=== PATIENT | male | born 1985 | race Caucasian/White ===

== ENCOUNTER → 2020-10-12 14:47 | Outpatient (POV) | payer SELFPAY | PROVIDERS: Visit Provider Dermatology | DX: Z00.00 Encounter for general adult medical examination without abnormal findings (principal) ==

== ENCOUNTER → 2020-10-19 09:08 | Outpatient (POV) | payer SELFPAY | PROVIDERS: Visit Provider Dermatology | DX: Z00.00 Encounter for general adult medical examination without abnormal findings (principal) ==

== ENCOUNTER → 2020-11-09 08:58 | Outpatient (POV) | payer SELFPAY | PROVIDERS: Visit Provider Dermatology | DX: Z00.00 Encounter for general adult medical examination without abnormal findings (principal) ==

== ENCOUNTER → 2023-03-20 14:51 | Outpatient (CLI) | payer BC, SELFPAY ==
--- NOTE | 2023-03-20 14:56 | US_ITS ---
FINAL REPORT TECHNIQUE: Multiple transverse and longitudinal images CLINICAL HISTORY: ELEV. LFTS FINDINGS: The gallbladder shows no wall thickening, distention or stone disease. No biliary ductal dilatation is appreciated. No fluid collections are seen. Limited portions of the right liver are fatty infiltrated. Limited portions of the right kidney are unremarkable. IMPRESSION: 1. No evidence of cholelithiasis 2. No evidence of biliary obstruction Reviewed, Interpreted and Dictated by Lolita Luis MD Transcribed by Peter Phillips Authenticated and [facility]
== END ==
PROVIDERS: PCP Family Medicine; Visit Provider Family Medicine
DX: R94.5 Abnormal results of liver function studies (principal)
CPT/HCPCS: 76705

== ENCOUNTER 2024-10-29 13:50 | Emergency (ER) | payer SELFPAY ==
--- NOTE | 2024-10-29 13:58 | HMH.EDGENADL ---
Discharge Plan Disposition Patient Disposition: Xfer Short-Term Hosp Condition: Fair Referrals Follow up/Referrals: Daija Franz [Primary Care Provider, Medical] - See instructions Activity Restrictions/Add. Instructions Additional Instructions/Restrictions: To the [facility] emergency department care of Dr. Ledesma Clinical Impressions Clinical Impression: Open fracture of distal phalanx of left index finger Qualifiers: Encounter type: initial encounter Fracture alignment: nondisplaced Qualified Code(s): S62.661B - Nondisplaced fracture of distal phalanx of left index finger, initial encounter for open fracture Laceration of left middle finger Qualifiers: Encounter type: initial encounter Damage to nail status: without damage Foreign body presence: unspecified Qualified Code(s): S61.213A - Laceration without foreign body of left middle finger without damage to nail, initial encounter Laceration of left ring finger Qualifiers: Encounter type: initial encounter Damage to nail status: without damage Foreign body presence: unspecified Qualified Code(s): S61.215A - Laceration without foreign body of left ring finger without damage to nail, initial encounter Stand Alone Forms Stand Alone Forms: Transfer Record - ED Instructions Patient Instructions: DI for Laceration Repair Print Language Print Language: Kiswahili Discharge ED Provider: Solis Heller General Adult HPI <JAIMIE Rosenbaum - Last Filed: 10/29/24 15:36> General Chief complaint: Wound/Laceration Stated complaint: AO-laceration to left hand fingers Time Seen by Provider: 10/29/24 13:56 History of Present Illness HPI narrative: Patient presents for evaluation of a left hand injury. Patient was using an angle pocket grinder operator and slipped causing an injury to the 2nd, 3rd and 4th digits of his left hand. He retains sensation and motor but the left index finger is the most painful to range of motion. Related Data Allergies Allergy/AdvReac Type Severity Reaction Status Date / Time No Known Allergies Allergy Verified 10/29/24 14:04 PFSH <JAIMIE Rosenbaum - Last Filed: 10/29/24 15:36> PFS Disclaimer: The information contained in this section may have been updated after the patient was seen, as this information can be updated by other users. Social History (Updated 10/29/24 @ 15:36 by JAIMIE Rosenbaum) Smoking Status: Current every day smoker alcohol intake: never current occupational status: employed Travel in the last 8 weeks?: None Have you lived/traveled outside US in past 30 days?: No Contact w/someone who lives/traveled outside US past 30 days?: No Exposure to someone with infectious disease in past 14 days?: No Do you have a fever (greater than 100.4 F or 38 C)?: No Have you tested positive for COVID-19?: No Exposed to someone with COVID-19 in past 14 days?: No Do you have a sore throat?: No Do you have a cough?: No Do you have any weakness?: No Do you have any diarrhea?: No Are you experiencing any unusual bleeding?: No Do you have any muscle aches/pain?: No Do you have any abdominal pain?: No Are you experiencing loss of taste or smell?: No <JAIMIE Rosenbaum - Last Filed: 10/29/24 15:36> ROS Obtained: Yes Systems reviewed as appropriate & no additional complaints except as documented Physical Exam <JAIMIE Rosenbaum - Last Filed: 10/29/24 15:36> General General appearance: alert and in no apparent distress Respiratory Respiratory exam: Present normal lung sounds bilaterally Cardiovascular Cardiovascular exam: Present regular rate Expanded Upper Extremity Exam Left: Hand L/R back image:  1. Laceration 1 next to the nailbed 2. Laceration 2 soft tissue defect 3. Laceration 3 superficial Neurological Exam Neurological exam: Present alert and oriented X3 Medical Decision Making <JAIMIE Rosenbaum - Last Filed: 10/29/24 15:36> Medical Records Screening: Per USPSTF and CDC recommendations, given the prevalence of disease in our region, it is our hospital?s policy to screen for HIV and viral Hepatitis for all patients aged 18 and over and those with ongoing risk factors. Lorenzo Inquiry Pt receiving controlled substance: No Vital Signs: 10/29/24 13:59 10/29/24 15:04 Temperature 97.8 F Temperature Source Oral Pulse Rate 60 Pulse Rate [Left Brachial] 63 Respiratory Rate 16 16 Blood Pressure 138/88 Blood Pressure [Left Arm] 143/92 H Blood Pressure Mean [Left Arm] 109 Blood Pressure Source [Left Arm] Automatic Cuff Blood Pressure Position [Left Arm] Sitting 02 Sat by Pulse Oximetry 99 98 Oxygen Delivery Method Room Air Room Air Orders (Tests/Meds): ED MEDICATIONS Discontinued Medications Generic Name Dose Route Start Last Admin Trade Name Ulises PRN Reason Stop Dose Admin Cefazolin Sodium 1 gm 10/29/24 15:20 Cefazolin 1gm Vial IM 10/29/24 15:21 ONCE ONE Cephalexin HCl 500 mg 10/29/24 14:04 Cephalexin 500mg Capsule PO 10/29/24 14:05 ONCE ONE Lidocaine/Epinephrine 20 ml 10/29/24 14:04 Lidocaine 1% W/Epi 1:100,000 20ml Vial SQ 10/29/24 14:05 ONCE ONE ORDERS Category Date Time Status Hand XR left minimum 3 views [XR hand LT min 3V] Stat Exams 10/29/24 14:02 Completed Medical Decision Narrative: In summary patient is a 39-year-old male who presents to the emergency department for evaluation of left hand injury. Patient is hemodynamically stable upon arrival, afebrile. Physical exam is remarkable for soft tissue defect over the dorsum of the 2nd, 3rd and 4th digits. The second digit laceration begins at the medial aspect of the nailbed extending to the DIP joint the second begins proximal to the nailbed extending across the DIP close to the IP joint. Patient retains motor and sensory in all 3 injured digits however the index finger is extremely painful to flexion and extension was so was not extensively tested he has good cap refill in all 3 fingers however.. Differential diagnosis includes open fracture versus soft tissue injury versus deep versus superficial etc. Initial workup will be conducted with plain film x-rays.. Initial interventions include Tylenol ibuprofen and oxycodone however patient declined all and patient is up-to-date on his tetanus. Initial workup reviewed by me and my informal interpretation of his imaging shows a longitudinal fracture of the distal phalanx minimally displaced. Given the open fracture I had interactive discussion with the [facility] transfer bogard Dr. Ledesma about patient presentation CEJA and management and he has been graciously accepted for further evaluation and care to the [place] emergency department. <Solis Heller MD - Last Filed: 10/29/24 15:42> Vital Signs: 10/29/24 13:59 10/29/24 15:04 Temperature 97.8 F Temperature Source Oral Pulse Rate 60 Pulse Rate [Left Brachial] 63 Respiratory Rate 16 16 Blood Pressure 138/88 Blood Pressure [Left Arm] 143/92 H Blood Pressure Mean [Left Arm] 109 Blood Pressure Source [Left Arm] Automatic Cuff Blood Pressure Position [Left Arm] Sitting 02 Sat by Pulse Oximetry 99 98 Oxygen Delivery Method Room Air Room Air Orders (Tests/Meds): ED MEDICATIONS Discontinued Medications Generic Name Dose Route Start Last Admin Trade Name Ulises PRN Reason Stop Dose Admin Cefazolin Sodium 1 gm 10/29/24 15:20 Cefazolin 1gm Vial IM 10/29/24 15:21 ONCE ONE Cephalexin HCl 500 mg 10/29/24 14:04 Cephalexin 500mg Capsule PO 10/29/24 14:05 ONCE ONE Lidocaine/Epinephrine 20 ml 10/29/24 14:04 Lidocaine 1% W/Epi 1:100,000 20ml Vial SQ 10/29/24 14:05 ONCE ONE ORDERS Category Date Time Status Hand XR left minimum 3 views [XR hand LT min 3V] Stat Exams 10/29/24 14:02 Completed Medical Decision Narrative: In summary patient is a 39-year-old male who presents to the emergency department for evaluation of left hand injury. Patient is hemodynamically stable upon arrival, afebrile. Physical exam is remarkable for soft tissue defect over the dorsum of the 2nd, 3rd and 4th digits. The second digit laceration begins at the medial aspect of the nailbed extending to the DIP joint the second begins proximal to the nailbed extending across the DIP close to the IP joint. Patient retains motor and sensory in all 3 injured digits however the index finger is extremely painful to flexion and extension was so was not extensively tested he has good cap refill in all 3 fingers however.. Differential diagnosis includes open fracture versus soft tissue injury versus deep versus superficial etc. Initial workup will be conducted with plain film x-rays.. Initial interventions include Tylenol ibuprofen and oxycodone however patient declined all and patient is up-to-date on his tetanus. Initial workup reviewed by me and my informal interpretation of his imaging shows a longitudinal fracture of the distal phalanx minimally displaced. Given the open fracture I had interactive discussion with the [facility] transfer center Dr. Ledesma about patient presentation CEJA and management and he has been graciously accepted for further evaluation and care to the [place] emergency department. I was consulted by the CHRISTOPHER, and we discussed the complexity of the problems being addressed. I approved the treatment and management plan for this patient's care in the emergency department, thus performing a substantive portion of the medical decision making. Solis Heller MD Critical Care <JAIMIE Rosenbaum - Last Filed: 10/29/24 15:36> Critical Care Time Critical Care Time: No
[2024-10-29 13:59] VITALS: BP 143/92; PULSE 63; RESP 16; TEMP 36.6; O2SAT 99; BMI 34.0
--- OUTSIDE RECORDS SUMMARY | 2024-10-29 13:59 | XMS_ITS | Clinical Summary ---
Author Organization Healthcare Address [address] [place] [address] Care Team Providers Care Deep Well Contractor Name Role Phone Unavailable Primary Care Provider Unavailabl e Family History Medical History Relation Name Comments Cardiac disorder Father Diabetes Father Relation Name Status Comments Father Social History Tobacco Use Types Packs/Day Years Used Date Smoking Tobacco: Never Sex and Gender Information Value Date Recorded Sex Assigned at Not on file Legal Sex Male 6:49 PM EDT Gender Identity Not on file Sexual Orientation Not on file Plan of Treatment Health Maintenance Due Date Last Done Comments [facility]-Depression Screening 1984 [facility]-/Child/Adol SDOH Screenings 1984 [facility]-Varicella Vaccines (1 of 2 - 13+ 2-dose series) 01/31/1997 HPV Vaccines (1 - Male 3-dos e series) 01/31/1999 [facility]- SDOH Screenings 01/31/2002 [facility]-Adult SDOH Screenings 01/31/2002 [facility]-DTaP,Tdap,and Td Vaccine s (1 - Tdap) 01/31/2003 [facility]-Hepatitis B Vaccines (1 of 3 - 19+ 3-dose series) 01/31/2003 [id number] Vaccine (1 - 20 24-25 season) 2023 [facility]-Influenza Vaccine (#1) 2024 [facility]-Zoster Vaccines (1 of 2) 01/31/2034 [facility]-HIB Vaccines Aged Out No longer e ligible based on patient's age to complete this topic [facility]-Hepatitis A Vaccines Aged Out No longer eligible based on patient's age to complete this topic [facility]-IPV Vaccines Aged Out No longer e ligible based on patient's age to complete this topic [facility]-Pneumococcal Vaccine: Pediatrics (0 to 5 Years) and At-Risk Patients (6 to 49 Years) Aged Out No long er eligible based on patient's age to complete this topic [facility]-Rotavirus Vaccines Aged Out No lo nger eligible based on patient's age to complete this topic
--- OUTSIDE RECORDS SUMMARY | 2024-10-29 14:00 | XMS_ITS | Data Portability ---
Author Organization [facility] [place], [facility] [place] Address [address] [place] [address] Care Team Providers Care Project Associate Name Role Phone TODD CID Primary Care Provider Assessment No assessment recorded. Plan of Treatment Reminders Order Date Submit Date Provider Last Modified By Organization Details Last Modified Time Details Appointments None record ed. Lab None record ed. Referral None record ed. Procedures None record ed. Surgeries None record ed. Imaging None record ed. Medication Orders None record ed. Patient TargetsNo targets recorded. Patient InstructionsNo instructions recorded. Reason for Referral None Reported. Procedures Surgical History Date Name Laterality Status Provider Name and Address Organization Details Recorded Time 06/12/2023 Vasectomy completed Leighton Das Jr, MD [address] [place] [address], [address], [place], [address], [facility] [place] 06/12/2023 09:07:20 Imaging Results None recorded. Procedure Notes None recorded. Medical Equipment None Reported. Allergies No known drug allergies Medications Name Sig Start Date Stop Date Status Note LastModified by Organization Details LastModified Time amoxicillin 500 mg capsule TAKE 1 CAPSULE BY MOUTH EVERY 8 HOURS 05/02 completed Not Available Not Available Not Available prednisone 10 mg tablet TAKE 4 TABLETS BY MOUTH ONCE DAILY FOR 3 DAYS, THEN 3 ONCE DAILY FOR 3 DAYS, THEN 2 ONCE DAILY FOR 3 DAYS, THEN 1 ONCE DAILY FOR 3 DAYS 05/02 completed Not Available Not Available Not Available azithromyci n 250 mg tablet TAKE 2 TABLETS BY MOUTH ON DAY 1, AND THEN TAKE 1 TABLET BY MOUTH ONCE A DAY ON DAY 2 THROUGH DAY 5 05/02 completed Not Available Not Available Not Available ibuprofen 800 mg tablet TAKE 1 TABLET BY MOUTH EVERY 8 HOURS 05/02 completed Not Available Not Available Not Available azelastine 137 mcg (0.1 %) nasal spray USE 1 SPRAY(S) IN EACH NOSTRIL TWICE DAILY 05/02 completed Not Available Not Available Not Available methylpredn isolone 4 mg tablets in a dose pack TAKE BY MOUTH DIRECTED ON INSIDE OF PACKAGE 05/02 completed Not Available Not Available Not Available levocetiriz ine 5 mg tablet TAKE 1 TABLET BY MOUTH ONCE DAILY 05/02 completed Not Available Not Available Not Available Vitals Date Recorded Body height Body mass index (BMI) Body weight Body temperature Provider Name and Address Organization Details Last Updated DateTime 05/02/2023 180.34 cm 30.7 kg/m2 18927.32 g 98.2 [degF] Charbel Barajas [facility] [place] 05/02/2023 10:05:41 Date Recorded Body height Body mass index (BMI) Body weight Body temperature Provider Name and Address Organization Details Last Updated DateTime 06/12/2023 180.34 cm 30.7 kg/m2 97312.32 g 98.1 [degF] Charbel CORBETT [facility] [place] 06/12/2023 08:10:17 Social History Question Answer Notes LastModified by Organizat ion Details LastModified Time Tobacco Smoking Status Former Smoker [facility] [place] 06/12/2023 08:10:22 Do You Have An Advance Directive? No Information not available 06/12/2023 Are You Blind Or Do You Have Difficulty Seeing? No [email or web address] Information not available 06/12/2023 What Was The Date Of Your Most Recent Tobacco Screening? 06/09/2023 Information not available 06/12/2023 Are You Passively Exposed To Smoke? No [email or web address] Information not available 06/12/2023 Has Tobacco Cessation Counseling Been Provided? No [email or web address] Information not available 06/12/2023 Sex: Unknown Functional Status Question Answer Note LastModified by Organizat ion Details LastModified Time Do you use any illicit or recreational drugs? No Information not available 06/12/2023 Do you or have you ever used any other forms of tobacco or nicotine? Yes [email or web address] Information not available 06/12/2023 What is your level of alcohol consumption? None [email or web address] Information not available 05/02/2023 Do you or have you ever used smokeless tobacco? Currently chews tobacco [email or web address] Information not available 05/02/2023 Do you or have you ever used e-cigarettes or vape? Current user of electronic cigarettes [email or web address] Information not available 06/12/2023 What is your exercise level? Moderate [email or web address] Information not available 06/12/2023 Mental Status Question Answer Note LastModified by Organization D etails LastModified Time Do you feel stressed (tense, restless, nervous, or anxious, or unable to sleep at night)? [id number] [email or web address] Information not available 06/12/2023 Family History Relationship Description Onset Age of this Age Resolved Age Notes LastModified by Organization Details LastModified Time Brother Family history unknown [email or web address] Not available 2023 10:07:36 Sister Family history unknown [email or web address] Not available 2023 10:07:37 Father Family history unknown [email or web address] Not available 2023 10:07:37 Mother Family history unknown Not available 2023 10:07:37 Medical History No medical history recorded. Past Encounters Encounter ID Performer Location Encounter Start Date Encounter Closed Date Diagnosis/Indication Diagnosis SNOMED-CT Code Diagnosis ICD10 Code Diagnosis Note [id number] Leighton Das Jr, MD [facility] [address] [address] 05/02/2023 10:03:21 05/02/2023 10:23:54 Counseling for sterilization done [id number] Z30.09 38-year-ol d white male referred for a vasectomy consultati on. Patient read over the vasectomy materials we discussed the operative procedure, complicati ons and postoperat inder course. He wishes to proceed under a local anesthetic we will set this up at his earliest convenienc e. We discussed complicati ons such as scrotal hematoma and epididymit is. He was counseled that he is not considered fistulae sterile until he brings his back 2 semen samples. [id number] Leighton Das Jr, MD [facility] [address] [place] [address] 06/12/2023 08:06:49 06/12/2023 08:46:05 Sterilization procedure done [id number] Z30.2 patient underwent bilateral vasectomy today under local anesthetic . He had a little bit of dizziness postop and was watched in the room while lying in with his in the room as well. His dizziness resolved he was discharged home with routine instructio ns and medication s. His is drive home. Health Concerns Section Related Observation LastModified by Organization Detai ls LastModified Time None Recorded Concern Status LastModified by Organization Details LastModified Time None Recorded Advance Directives Directive N: Payers Insurance Date Sequence Insurance Name Policy Number Policy Collazo Covered Member ID Collazo Member ID Guarantor Name 07/31/2023 1 [place]: LUIS ALBERTO SABA OF [facility] MEDICAID ([place]) [id number] Juan Hammond [id number] Juan Hammond Notes Date Note Type Note Provider Name and Address Organization Details Recorded Time 05/02/2023 text/html patient is a 38-year-old white male referred for vasectomy consultation. Patient is 3 children. States that he and his have discussed sterilization options and have agreed upon vasectomy as their method of choice. Patient is very healthy individual. He denies any testicular pain or abnormalities. Leighton Das Jr, MD [address] [place] [address], [address], [place], [address], [facility] [place] 05/02/2023 14:35:04 06/12/2023 text/html Patient is a 38-year-old white male who presents for vasectomy today. We have previously discussed the vasectomy procedure and complications and postoperative course at length. Leighton Das Jr, MD [address] [place] [address], [address], [place], [address], [facility] [place] 06/12/2023 09:08:39
--- NOTE | 2024-10-29 14:02 | XR_ITS ---
FINAL REPORT CLINICAL HISTORY: Angle tile grinder to dorsum of digits 1-4 COMPARISON: None FINDINGS: LEFT HAND Three views demonstrate an acute appearing longitudinal nondisplaced fracture of the 2nd middle phalanx. There is a well corticated ossific density over the dorsal aspect of the 2nd DIP joint measuring 4 mm. There is also a density along the lateral aspect of the 3rd middle phalanx measuring 5 mm. These densities appear chronic. The visualized joint spaces are normally aligned. The soft tissues are unremarkable. IMPRESSION: Acute appearing fracture 2nd middle phalanx. Reviewed, Interpreted and Dictated by Deo Rosas MD Transcribed by Missy Weinberg Authenticated and [facility]
--- NOTE | 2024-10-29 14:36 | PC.NURSE ---
Called [facility] per JAIMIE Vasques for this pt that has multiple open finger fractures on left hand from an angle swing grinder Images were powershared to [facility] and they advised that they would call us back
[2024-10-29 15:04] VITALS: BP 138/88; PULSE 60; RESP 16; O2SAT 98
--- NOTE | 2024-10-29 15:16 | PC.NURSE ---
called back and is speaking with JAIMIE Vasques at this time
[2024-10-29 15:54] VITALS: BP 138/88; PULSE 60; RESP 16; TEMP 36.8; O2SAT 98
== END 2024-10-29 15:55 | disposition short-term general hospital (02) ==
PROVIDERS: Emergency Provider Emergency Medicine; PCP Family Medicine
DX: S62.661B Nondisplaced fracture of distal phalanx of left index finger, initial encounter for open fracture (principal); S61.213A Laceration without foreign body of left middle finger without damage to nail, initial encounter; S61.215A Laceration without foreign body of left ring finger without damage to nail, initial encounter; F17.210 Nicotine dependence, cigarettes, uncomplicated; W31.1XXA Contact with metalworking machines, initial encounter
CPT/HCPCS: 73130; 96372; 99285

== ENCOUNTER 2025-01-29 08:21 | Emergency (ER) | payer MEDICAID, SELFPAY ==
[2025-01-29 08:29] VITALS: BP 126/83; PULSE 68; RESP 18; TEMP 36.6; O2SAT 98; BMI 34.0
--- NOTE | 2025-01-29 09:28 | ED_ITS ---
Discharge Plan Disposition Patient Disposition: Home, Self-Care Referrals Follow up/Referrals: Daija Franz [Primary Care Provider, Medical] - See instructions Activity Restrictions/Add. Instructions Additional Instructions/Restrictions: At this time it was felt you are safe to be discharged home. If new or worsening symptoms please do not hesitate to return the emergency department. Please apply the ointment provided to you 3 times a day for 5 days. Please call and schedule an appointment with my eye doctor tomorrow if possible and Sunday at the latest for continued evaluation. I do not see a foreign body in your eye today fortunately I think that it already scratched it and did the damage which is why you are feeling the symptoms that you have. If your eye starts pouring out pus present immediately here for continued evaluation. Clinical Impressions Clinical Impression: Abrasion, corneal Print Language Print Language: Latvian Discharge ED Provider: Solis Heller General Adult HPI General Chief complaint: Eye Problems Stated complaint: AO-01/28/25- foreign object in R eye Time Seen by Provider: 01/29/25 08:29 Mode of Arrival: Ambulatory Source of Information: Patient Description of Symptoms (Recalled from ER Triage Doc. by RN): pt was grinding and feels something is in his r eye. had safety glasses on. History of Present Illness HPI narrative: Patient is a 39-year-old male Tdap up-to-date who presents emergency department for evaluation of a foreign body sensation in his right eye. He was working in the garage yesterday with a tankage grinder with lots of particulate matter does not remember a discrete event however he went to bed and woke up and has irritated eye and presents here for continued evaluation. No anticoagulants or bleeding diathesis. Please note that above description of symptoms, in this electronic medical record under categorization of recalled from ER triage doctor by RN are reflective of an initial nursing assessment, however, is not reflective of my full history and physical exam that was personally taken and clarified. Consequentially, this preceding description of symptoms, which may include the patient's categorized chief complaint in the EMR, do not reflect my personal clinical impression, and the ultimate description of history of present illness and patient stated complaints should be deferred to this section of the note. Unless stated otherwise or congruent with this section of the note, additional signs, symptoms, or incongruence should be interpreted as inaccurate with my clinical impression. Related Data Allergies Allergy/AdvReac Type Severity Reaction Status Date / Time No Known Allergies Allergy Verified 10/29/24 14:04 [facility] Disclaimer: The information contained in this section may have been updated after the rosa m nieto was seen, as this information can be updated by other users. Social History (Updated 10/29/24 @ 15:36 by JAIMIE Rosenbaum) Smoking Status: Never smoker alcohol intake: never current occupational status: employed Travel in the last 8 weeks?: None Have you lived/traveled outside [place] in past 30 days?: No Contact w/someone who lives/traveled outside [place] past 30 days?: No Exposure to someone with infectious disease in past 14 days?: No Do you have a fever (greater than 100.4 F or 38 C)?: No Have you tested positive for COVID-19?: No Exposed to someone with COVID-19 in past 14 days?: No Do you have a sore throat?: No Do you have a cough?: No Do you have any weakness?: No Do you have any diarrhea?: No Are you experiencing any unusual bleeding?: No Do you have any muscle aches/pain?: No Do you have any abdominal pain?: No Are you experiencing loss of taste or smell?: No ROS Obtained: Yes Systems reviewed as appropriate & no additional complaints except as documented Physical Exam General General appearance: alert and in no apparent distress Head Head exam: atraumatic and normocephalic Eye Eye exam: Present PERRL, EOMI and conjunctival redness (Right) ENT ENT exam: Present mucous membranes moist Neck Neck exam: Present normal inspection Chest Chest inspection: Present normal inspection and symmetric chest wall rise Respiratory Respiratory exam: Absent respiratory distress Cardiovascular Cardiovascular exam: Present regular rate and normal rhythm Extremities Exam Extremities exam: Present normal inspection Neurological Exam Neurological exam: Present alert and CN II-XII intact Psychiatric Psychiatric exam: Present normal affect Skin Skin exam: Present warm and dry Medical Decision Making Medical Records Screening: Per USPSTF and CDC recommendations, given the prevalence of disease in our region, it is our hospital?s policy to screen for HIV and viral Hepatitis for all patients aged 18 and over and those with ongoing risk factors. Lorenzo Inquiry Pt receiving controlled substance: No Vital Signs: 01/29/25 08:29 Temperature 97.8 F Temperature Source Oral Pulse Rate [Right] 68 Respiratory Rate 18 Blood Pressure [Right Arm] 126/83 Blood Pressure Mean [Right Arm] 97 02 Sat by Pulse Oximetry 98 Medical Decision Narrative: In summary patient is a 39-year-old male with past medical history of scrota above presents Emergency Department for evaluation of foreign body sensation in his right eye. Ocular exam performed conjunctival injection, fluorescein uptake has a corneal abrasion over the mid cornea that is small. No foreign body identified. Patient is appropriate for discharge with erythromycin ointment which first dose was applied here and he will follow-up with my eye doctor within the coming days and was given return precautions. Procedure: Procedure performed with fluorescein exam. Procedure performed by Solis Heller. Topical tetracaine was instilled into the right eye with good effect. Lids were everted no foreign body identified. Fluorescein was instilled into the eye there is a punctate corneal abrasion over the mid cornea. No foreign body identified. There is associated conjunctival injection. Patient tolerated the procedure well there were no immediate complications. Critical Care Critical Care Time Critical Care Time: No
--- NOTE | 2025-01-29 09:28 | PC.NURSE ---
20/70 to r eye 20/40 to left eye
[2025-01-29 09:29] VITALS: BP 118/83; PULSE 68; RESP 16; TEMP 36.7; O2SAT 98
== END 2025-01-29 09:35 | disposition home or self-care (01) ==
PROVIDERS: Emergency Provider Emergency Medicine; PCP Family Medicine
DX: S05.01XA Injury of conjunctiva and corneal abrasion without foreign body, right eye, initial encounter (principal); W44.9XXA Unspecified foreign body entering into or through a natural orifice, initial encounter
CPT/HCPCS: 99283